=== PATIENT | male | born 1990 | race Caucasian/White ===

== ENCOUNTER → 2016-09-10 | Outpatient (REF) | payer OTHER ==
[~2016-09-10] MED LIST: /ESCI10TA OR; DEPA500T2 OR; TRAZ50TA OR
== END ==
LOC: M LAB REF 13:06
PROVIDERS: ATTEND Physician Assistant Medical
DX: N39.0 Urinary tract infection, site not specified (principal)

== ENCOUNTER → 2016-09-10 | Outpatient (CLI) | payer OTHER ==
--- NOTE | 2016-09-10 14:38 | REP ---
Scrotal ultrasound for right testicular pain, no trauma. The testes are normal size. Right testis measures 4.6 x 2.2 x 3.0 cm. Left testis measures 4.6 x 2.1 x 3.1 cm. The right and left epididymal heads are normal size. There is a right epididymal head 8.8 mm cyst. There are no testicular masses. There is vascular flow in both testes with the Doppler resistive index of the intraparenchymal arteries on the right measuring 0.53 and the left 0.52. Impression: Essentially negative scrotal ultrasound. There is vascular flow in both testes. There are no testicular masses. There is an 8.8 mm right epididymal head cyst. Signed by Km Smyth MD 09/10/2016 02:30 P
== END ==
LOC: M RAD 13:19
PROVIDERS: ATTEND Physician Assistant Medical
DX: N50.811 Right testicular pain (principal); N50.3 Cyst of epididymis

== ENCOUNTER 2020-11-11 19:42 | Emergency (ER) | payer BC, SELFPAY ==
[~2020-11-11] VITALS: Ht 264.2 cm; Wt 59.5 kg
[~2020-11-11 19:42] MED LIST changes: -/ESCI10TA OR; +LEXA1TAB OR
[2020-11-12 02:09] LABS: BASO % 0.5 % (0.0-1.0); EOS # 0.5 10^3/uL (0.0-0.5); EOS % 7.6 % (0.0-3.0); HEMATOCRIT 44.7 % (42.0-52.0); HEMOGLOBIN 15.3 g/dl (13.5-17.5); LYMPH # 2.4 10^3/uL (1.5-5.0); LYMPH % 38.9 % (24.0-44.0); MEAN CORPUSCULAR HEMOGLOBIN 30.2 pg (27.0-33.0); MEAN CORPUSCULAR HGB CONC 34.2 g/dl (32.0-36.5); MEAN CORPUSCULAR VOLUME 88.2 fl (80.0-96.0); MONO # 0.4 10^3/uL (0.0-0.8); MONO % 6.3 % (2.0-8.0); NEUTROPHILS # 2.8 10^3/uL (1.5-8.5); NEUTROPHILS % 46.4 % (36.0-66.0); PLATELET COUNT, AUTOMATED 214 10^3/uL (150-450); RED BLOOD COUNT 5.07 10^6/uL (4.30-6.10); WHITE BLOOD COUNT 6.1 10^3/uL (4.0-10.0)
[2020-11-12 02:51] LABS: ALT/SGPT 25 U/L (12-78); BLOOD UREA NITROGEN 9 MG/DL (7-18); CALCIUM LEVEL 8.9 MG/DL (8.5-10.1); CARBON DIOXIDE LEVEL 30 MEQ/L (21-32); CHLORIDE LEVEL 106 MEQ/L (98-107); CREATININE FOR GFR 0.87 MG/DL (0.70-1.30); GLOMERULAR FILTRATION RATE > 60.0 (>60); GLUCOSE, FASTING 59 MG/DL (70-100); POTASSIUM SERUM 3.4 MEQ/L (3.5-5.1); SODIUM LEVEL 141 MEQ/L (136-145)
[2020-11-12 02:52] LABS: BILIRUBIN,DIRECT 0.3 MG/DL (0.0-0.2); BILIRUBIN,TOTAL 0.8 MG/DL (0.2-1.0); CK-MB VALUE MASS 3.8 NG/ML (<3.6); CPK CREATINE PHOSPHOKINASE 606 U/L (39-308); FREE T4 1.26 NG/DL (0.76-1.46); MB/CK RELATIVE INDEX 0.63 (< OR =4); NT-PRO BNP 43 PG/ML (<125); TOTAL PROTEIN 6.9 GM/DL (6.4-8.2); TROPONIN I < 0.02 NG/ML (< 0.10)
[2020-11-12] MEDS ORDERED: POTASSIUM CHLORIDE 10 MEQ SR TABLET PO ONE (04:00)
--- NOTE | 2020-11-12 04:00 | REPVR ---
PROCEDURE INFORMATION: Exam: XR Chest Exam date and time: 11/12/20 (2:28am) Age: 30 years old Clinical indication: SOB. Possible Covid. TECHNIQUE: Imaging protocol: Portable CXR Views: 1 view COMPARISON: Chest films of 03/17/18 FINDINGS: Lungs: Unremarkable. No consolidation. Pleural spaces: Unremarkable. No pleural effusions. No pneumothorax. Heart/Mediastinum: Unremarkable. No cardiomegaly. Bones/joints: Unremarkable. IMPRESSION: No acute findings. Lung dowling remain clear. Electronically signed by: Carin Roman On 11/12/2020 03:59:43 AM
[2020-11-12 05:15] VITALS: BP 114/66
--- NOTE | 2020-11-12 20:14 | ECGEPIP ---
[facility] - ED Test Date: 2020-11-12 Pat Name: MIGUEL ZARCO Department: Room: - Gender: Male Ultrasound Specialist: ED : 1990 Requested By: PABLO Flores Order Number: [id number] Reading MD: Supa Raymond Measurements Intervals [place] Rate: 66 P: 29 NE: 136 QRS: 77 QRSD: 92 T: 73 QT: 422 QTc: 442 Interpretive Statements Normal sinus rhythm Comparison tracing not on file Electronically Signed on 11-12-2020 20:14:39 EDT by Supa Raymond
== END 2020-11-12 05:38 | disposition home or self-care (01) ==
LOC: M ED 19:42
DX: R06.02 Shortness of breath (principal); Z86.16 Personal history of COVID-19; K21.9 Gastro-esophageal reflux disease without esophagitis; F90.9 Attention-deficit hyperactivity disorder, unspecified type; F32.9 Major depressive disorder, single episode, unspecified; Z88.1 Allergy status to other antibiotic agents

== ENCOUNTER → 2021-05-10 | Outpatient (CLI) | payer OTHER ==
[~2021-05-10] MED LIST changes: +E-Z-GAS II EFFERVESCENT PACKET (SODIUM BICARB./CITRIC ACID/SIMETHICONE) As Ordered ONE; +E-Z-HD 98% w/w 340GM SUSP BTL As Ordered ONE; +E-Z-PAQUE 96% w/w SUSP 176GM BTL As Ordered ONE
== END ==
LOC: M RAD 07:32
PROVIDERS: ATTEND Family Medicine
DX: K27.9 Peptic ulcer, site unspecified, unspecified as acute or chronic, without hemorrhage or perforation (principal); K29.70 Gastritis, unspecified, without bleeding

== ENCOUNTER → 2021-05-18 | Outpatient (CLI) | payer OTHER ==
[~2021-05-18] MED LIST changes: -E-Z-GAS II EFFERVESCENT PACKET (SODIUM BICARB./CITRIC ACID/SIMETHICONE) As Ordered ONE; -E-Z-HD 98% w/w 340GM SUSP BTL As Ordered ONE; -E-Z-PAQUE 96% w/w SUSP 176GM BTL As Ordered ONE
[2021-05-18 15:25] LABS: HEMATOCRIT 48.3 % (42.0-52.0); HEMOGLOBIN 16.2 g/dl (13.5-17.5); MEAN CORPUSCULAR HEMOGLOBIN 30.6 pg (27.0-33.0); MEAN CORPUSCULAR HGB CONC 33.5 g/dl (32.0-36.5); MEAN CORPUSCULAR VOLUME 91.3 fl (80.0-96.0); PLATELET COUNT, AUTOMATED 210 10^3/uL (150-450); RED BLOOD COUNT 5.29 10^6/uL (4.30-6.10)
[2021-05-18 15:27] LABS: ALBUMIN 4.3 GM/DL (3.2-5.2); ALT/SGPT 24 U/L (12-78); BILIRUBIN,TOTAL 0.8 MG/DL (0.2-1.0); BLOOD UREA NITROGEN 10 MG/DL (7-18); CALCIUM LEVEL 9.2 MG/DL (8.5-10.1); CARBON DIOXIDE LEVEL 33 MEQ/L (21-32); CHLORIDE LEVEL 108 MEQ/L (98-107); CHOLESTEROL LEVEL 100 MG/DL (<200); CHOLESTEROL RISK RATIO 1.851 (<5); CREATININE FOR GFR 0.89 MG/DL (0.70-1.30); GLOMERULAR FILTRATION RATE > 60.0 (>60); GLUCOSE, FASTING 77 MG/DL (70-100); HDL CHOLESTEROL 54 MG/DL (>40); IRON (FE) 128 UG/DL (65-175); LDL CHOLESTEROL 35 MG/DL (<100); NON-HDL-C 46 MG/DL; PERCENT SATURATION 41.8 % (19.7-50.0); POTASSIUM SERUM 4.1 MEQ/L (3.5-5.1); SODIUM LEVEL 143 MEQ/L (136-145); THYROID STIMULATING HORMONE 0.647 uIU/ML (0.358-3.740); TOTAL IRON BINDING CAPACITY 306 UG/DL (250-450); TOTAL PROTEIN 7.2 GM/DL (6.4-8.2); TRIGLYCERIDES LEVEL 56 MG/DL (<150)
[2021-05-18 15:30] LABS: TOTAL 25(OH) VITAMIN D 9.2 NG/ML (30.0-100.0)
== END ==
LOC: M PLAIMG 13:39
PROVIDERS: ATTEND Family Medicine
DX: D64.9 Anemia, unspecified (principal); R53.83 Other fatigue

== ENCOUNTER → 2021-09-26 | Outpatient (CLI) | payer OTHER | LOC: M LAB 10:14 | PROVIDERS: ATTEND Family Medicine | DX: Z51.81 Encounter for therapeutic drug level monitoring (principal) ==

== ENCOUNTER → 2021-10-10 | Outpatient (CLI) | payer OTHER | LOC: M LAB 10:58 | PROVIDERS: ATTEND Family Medicine | DX: Z51.81 Encounter for therapeutic drug level monitoring (principal); Z79.899 Other long term (current) drug therapy ==

== ENCOUNTER 2021-10-30 04:46 | Emergency (ER) | payer OTHER ==
[~2021-10-30] VITALS: Ht 175.3 cm; Wt 65.9 kg
[2021-10-30] MEDS ORDERED: FLUO20CA22 (04:59)
[2021-10-30] MEDS ORDERED: ERGO500029 (04:59)
[2021-10-30] MEDS ORDERED: AMOX500C (04:59)
[2021-10-30] MEDS ORDERED: DEXTROAMP-AMPHETAMIN (04:59)
[2021-10-30 05:43] LABS: BASO % 0.5 % (0.0-1.0); EOS # 0.3 10^3/uL (0.0-0.5); EOS % 3.8 % (0.0-3.0); HEMATOCRIT 43.3 % (42.0-52.0); HEMOGLOBIN 15.3 g/dl (13.5-17.5); LYMPH # 2.4 10^3/uL (1.5-5.0); LYMPH % 31.2 % (24.0-44.0); MEAN CORPUSCULAR HEMOGLOBIN 30.1 pg (27.0-33.0); MEAN CORPUSCULAR HGB CONC 35.3 g/dl (32.0-36.5); MEAN CORPUSCULAR VOLUME 85.2 fl (80.0-96.0); MONO # 0.5 10^3/uL (0.0-0.8); NEUTROPHILS # 4.5 10^3/uL (1.5-8.5); NEUTROPHILS % 58.2 % (36.0-66.0); PLATELET COUNT, AUTOMATED 252 10^3/uL (150-450); RED BLOOD COUNT 5.08 10^6/uL (4.30-6.10); WHITE BLOOD COUNT 7.6 10^3/uL (4.0-10.0)
[2021-10-30 06:19] LABS: ALBUMIN 4.3 GM/DL (3.2-5.2); ALT/SGPT 24 U/L (12-78); BILIRUBIN,DIRECT 0.3 MG/DL (0.0-0.2); BILIRUBIN,TOTAL 1.4 MG/DL (0.2-1.0); BLOOD UREA NITROGEN 11 MG/DL (7-18); CALCIUM LEVEL 10.6 MG/DL (8.5-10.1); CARBON DIOXIDE LEVEL 30 MEQ/L (21-32); CHLORIDE LEVEL 102 MEQ/L (98-107); CREATININE FOR GFR 1.11 MG/DL (0.70-1.30); GLOMERULAR FILTRATION RATE > 60.0 (>60); GLUCOSE, FASTING 84 MG/DL (70-100); LIPASE 66 U/L (73-393); SODIUM LEVEL 135 MEQ/L (136-145)
[2021-10-30] MEDS ORDERED: PANTOPRAZOLE 40MG VIAL IV ONE (07:30)
[2021-10-30] MEDS ORDERED: NS 1,000 ML IV ONE (07:30)
[2021-10-30] MEDS ORDERED: SUCRALFATE SUSP 1GM/10ML UD PO ONE (07:30)
[2021-10-30] MEDS ORDERED: ONDA4TAB6 PO (09:47)
[2021-10-30] MEDS ORDERED: CARA1TAB6 PO (09:47)
[2021-10-30] MEDS ORDERED: PROT1TAB2 PO (09:47)
[2021-10-30 10:12] VITALS: BP 136/66
== END 2021-10-30 10:14 | disposition home or self-care (01) ==
LOC: M ED 04:46
DX: K92.2 Gastrointestinal hemorrhage, unspecified (principal); K92.0 Hematemesis; R10.13 Epigastric pain; K82.4 Cholesterolosis of gallbladder; K21.9 Gastro-esophageal reflux disease without esophagitis; F32.A Depression, unspecified; Z88.1 Allergy status to other antibiotic agents; Z79.899 Other long term (current) drug therapy
CPT/HCPCS: 74021; 76705; 80048; 80076; 83690; 85025; 96361; 96374; 99284; C9113